=== PATIENT | male | born 2005 | race Caucasian/White ===

== ENCOUNTER 2024-09-15 10:21 | Emergency (ER) | payer OTHER ==
[~2024-09-15] VITALS: Ht 162.6 cm; Wt 66.8 kg
[2024-09-15 12:57] LABS: Trichomonas vaginalis (AMP) NOT DETECTED (NEGATIVE)
[2024-09-15 13:21] LABS: GC DNA AMPLIFICATION NEGATIVE (NEGATIVE)
[2024-09-15 13:45] VITALS: BP 127/83; TEMP 99.1; O2SAT 98
== END 2024-09-15 13:49 | disposition home or self-care (01) ==
LOC: M ED 10:21
DX: I86.1 Scrotal varices (principal)

== ENCOUNTER 2024-12-30 11:09 | Emergency (ER) | payer OTHER ==
[~2024-12-30] VITALS: Ht 165.1 cm; Wt 65.1 kg
[2024-12-30 12:20] LABS: KETONE, URINE AUTO RFX TRACE mg/dL (NEGATIVE); LEUKOCYTE ESTERASE UR AUTO RFX NEGATIVE (NEGATIVE); MUCUS, URINE RFX SMALL (NEGATIVE); NITRITE, URINE AUTO RFX NEGATIVE (NEGATIVE); RBC, URINE AUTO RFX 0 /HPF (0-3); SQUAM EPITHELIAL CELL UR AURFX 0 /HPF (0-6); WBC, URINE AUTO RFX 0 /HPF (0-3)
[2024-12-30 13:04] VITALS: BP 149/83; TEMP 98.6; O2SAT 99
[2024-12-30 13:17] LABS: Trichomonas vaginalis (AMP) NOT DETECTED (NEGATIVE)
[2024-12-30 13:40] LABS: GC DNA AMPLIFICATION NEGATIVE (NEGATIVE)
== END 2024-12-30 13:07 | disposition home or self-care (01) ==
LOC: M ED 11:09
DX: I86.1 Scrotal varices (principal); N44.2 Benign cyst of testis; N50.3 Cyst of epididymis; F17.200 Nicotine dependence, unspecified, uncomplicated

== ENCOUNTER → 2025-02-01 | Outpatient (CLI) | payer OTHER | LOC: M RAD 13:47 | PROVIDERS: ATTEND Nurse Practitioner Family | DX: N50.819 Testicular pain, unspecified (principal) ==

== ENCOUNTER 2025-06-29 16:45 | Emergency (ER) | payer OTHER ==
[~2025-06-29] VITALS: Ht 165.1 cm; Wt 70.6 kg
[2025-06-29 19:07] LABS: BASO # 0.1 10^3/uL (0.0-0.2); BASO % 0.4 % (0.0-1.0); EOS # 0.3 10^3/uL (0.0-0.5); EOS % 2.1 % (0.0-3.0); LYMPH # 3.0 10^3/uL (1.5-5.0); LYMPH % 25.1 % (24.0-44.0); MONO # 0.8 10^3/uL (0.0-0.8); MONO % 6.5 % (2.0-8.0); NEUTROPHILS # 7.7 10^3/uL (1.5-8.5); NEUTROPHILS % 65.6 % (36.0-66.0); PLATELET COUNT, AUTOMATED 276 10^3/uL (150-450)
[2025-06-29 19:41] LABS: ALT/SGPT 28.0 U/L (7.0-40); AST/SGOT 20.0 U/L (<34); CALCIUM LEVEL 9.3 MG/DL (8.5-10.1); CARBON DIOXIDE LEVEL 26.0 MMOL/L (20-31); CHLORIDE LEVEL 102.0 MMOL/L (98-107); CREATININE FOR GFR 1.45 MG/DL (0.70-1.30); GLOMERULAR FILTRATION RATE 70.8 (>60); POTASSIUM SERUM 4.2 MMOL/L (3.5-5.1); SODIUM LEVEL 142.0 MMOL/L (136-145)
[2025-06-29 20:15] VITALS: O2SAT 99
[2025-06-29] MEDS: KETOROLAC 30 MG/ML 1 ML VIAL IV ONE (20:16)
[2025-06-29] MEDS: ONDANSETRON 4MG 2ML VIAL IV ONE (20:16)
[2025-06-29] MEDS: NS (Normal Saline) 0.9% 1,000 ML IV ONE (20:18)
[2025-06-29] MEDS ORDERED: ISOVUE-370 76% 100 ML VIAL As Ordered ONE (20:21)
[2025-06-29 20:43] LABS: KETONE, URINE AUTO RFX TRACE mg/dL (NEGATIVE); LEUKOCYTE ESTERASE UR AUTO RFX NEGATIVE (NEGATIVE); MUCUS, URINE RFX SMALL (NEGATIVE); NITRITE, URINE AUTO RFX NEGATIVE (NEGATIVE); RBC, URINE AUTO RFX 6 /HPF (0-3); SQUAM EPITHELIAL CELL UR AURFX 0 /HPF (0-6); WBC, URINE AUTO RFX 1 /HPF (0-3)
[2025-06-29] MEDS ORDERED: KETO-204 PO (21:49)
[2025-06-29] MEDS ORDERED: ONDA-282 PO (21:49)
[2025-06-29 22:09] VITALS: BP 129/75; TEMP 97.8
== END 2025-06-29 22:15 | disposition home or self-care (01) ==
LOC: M ED 16:45
DX: K52.9 Noninfective gastroenteritis and colitis, unspecified (principal); M54.9 Dorsalgia, unspecified; F17.200 Nicotine dependence, unspecified, uncomplicated
CPT/HCPCS: 74177; 80048; 80076; 81001; 83690; 85025; 96361; 96374; 96375; 99284; J1885; J2405; Q9967